=== PATIENT | male | born 1945 | race Caucasian/White ===

== ENCOUNTER 2016-04-28 07:07 | Day surgery (SDC) | payer MEDICARE ==
[~2016-04-28] VITALS: Ht 177.8 cm; Wt 99.0 kg
[2016-04-28 07:55] LABS: HEMOGLOBIN 16.4 g/dL (14.1-18.0); LYMPH # 1.7 K/mm3 (0.7-4.5); LYMPH % 29.4 % (10-50)
[2016-04-28 08:02] LABS: BUN 13 mg/dL (7-18); GFR (ESTIMATED) 83 ML/MIN (>60)
--- NOTE | 2016-04-28 09:24 | RADIOLOGY REPORT PS360 ---
CARDIAC CATHETERIZATION DATE OF CATHETERIZATION:04/28/2016 8:54 AM PROCEDURES: 1. Right heart catheterization 2. Left heart catheterization 3. Left ventriculogram 4. Selective coronary angiogram 5. Left internal mammary angiography 6. Selective engagement of the saphenous vein graft to right coronary artery INDICATION FOR TEST: 1. Abnormal high risk Myoview 2. Systolic congestive heart failure ejection fraction 28% 3. [place] heart Association class III congestive heart failure 4. History of coronary artery bypass surgery 5. Coronary artery disease Informed consent was obtained prior to the procedure. COMPLICATIONS: None ESTIMATED BLOOD LOSS: Less than 10 ml. TECHNIQUE: One percent lidocaine was used to anesthetize the right groin. The right femoral artery was accessed via the Seldinger technique. A 4-Arabic and 7 austrian sheath was placed in the right femoral artery and vein respectfully. The JR-4 and JL-4 catheter was also used to perform left heart catheterization, left ventriculography and selective coronary angiogram. At the end of the procedure the patient was transferred to the post-op holding area in stable condition for arterial sheath removal. ANGIOGRAPHIC RESULTS: 1. The left main artery normal 2. 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 It does give rise to a septal senior ui designer and one moderate size diagonal artery 3. The circumflex artery is dominant and has proximal 20% stenosis and then gives rise to 2 obtuse marginal arteries. The first obtuse marginal artery has mild 20% plaque while the large terminal obtuse marginal artery giving rise to the posterior descending artery has a proximal eccentric 30-40% stenosis 4. The right coronary artery is ostially occluded 5. The HERNÁNDEZ ventriculogram reveals severe left ventricular dilatation with ejection fraction 25% The left ventricular end-diastolic pressure 10 mmHg The left internal mammary artery is widely patent to the LAD The saphenous vein graft to the right coronary artery is ostially occluded HEMODYNAMICS: Right atrial pressure is 5 mm Hg. Pulmonary arterial pressure is 30/15 mm Hg. Pulmonary artery occlusion pressure is 12 mm Hg. SATURATIONS: RA is 83 %. PA is 81 %. IMPRESSION: 1. Chronically occluded right coronary artery with chronically occluded saphenous vein graft supplying the right coronary artery 2. Patent [place] to the LAD 3. Patent [place] circumflex artery 4. Severe left ventricular dysfunction with severe left ventricular dilatation with ejection fraction estimated at 25% by LV gram and measured at 28% by Myoview gated images 5. Mild pulmonary hypertension 6. Euvolemic cardiopulmonary state PLAN: 1. Systolic congestive heart failure standard of care 2. Patient will be scheduled for cardiac resynchronization therapy with defibrillator device because of widening QRS systolic congestive heart failure and class III [place] heart Association heart failure 3. Medical management for coronary artery disease 4. Daily aspirin 5. High intensity stent in therapy
--- NOTE | 2016-04-28 09:24 | RADIOLOGY REPORT PS360 ---
CARDIAC CATHETERIZATION DATE OF CATHETERIZATION:04/28/2016 8:54 AM PROCEDURES: 1. Right heart catheterization 2. Left heart catheterization 3. Left ventriculogram 4. Selective coronary angiogram 5. Left internal mammary angiography 6. Selective engagement of the saphenous vein graft to right coronary artery INDICATION FOR TEST: 1. Abnormal high risk Myoview 2. Systolic congestive heart failure ejection fraction 28% 3. [place] heart Association class III congestive heart failure 4. History of coronary artery bypass surgery 5. Coronary artery disease Informed consent was obtained prior to the procedure. COMPLICATIONS: None ESTIMATED BLOOD LOSS: Less than 10 ml. TECHNIQUE: One percent lidocaine was used to anesthetize the right groin. The right femoral artery was accessed via the Seldinger technique. A 4-Hebrew and 7 cook islander sheath was placed in the right femoral artery and vein respectfully. The JR-4 and JL-4 catheter was also used to perform left heart catheterization, left ventriculography and selective coronary angiogram. At the end of the procedure the patient was transferred to the post-op holding area in stable condition for arterial sheath removal. ANGIOGRAPHIC RESULTS: 1. The left main artery normal 2. 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 It does give rise to a septal manager it training and one moderate size diagonal artery 3. The circumflex artery is dominant and has proximal 20% stenosis and then gives rise to 2 obtuse marginal arteries. The first obtuse marginal artery has mild 20% plaque while the large terminal obtuse marginal artery giving rise to the posterior descending artery has a proximal eccentric 30-40% stenosis 4. The right coronary artery is ostially occluded 5. The HERNÁNDEZ ventriculogram reveals severe left ventricular dilatation with ejection fraction 25% The left ventricular end-diastolic pressure 10 mmHg The left internal mammary artery is widely patent to the LAD The saphenous vein graft to the right coronary artery is ostially occluded HEMODYNAMICS: Right atrial pressure is 5 mm Hg. Pulmonary arterial pressure is 30/15 mm Hg. Pulmonary artery occlusion pressure is 12 mm Hg. SATURATIONS: RA is 83 %. PA is 81 %. IMPRESSION: 1. Chronically occluded right coronary artery with chronically occluded saphenous vein graft supplying the right coronary artery 2. Patent [place] to the LAD 3. Patent [place] circumflex artery 4. Severe left ventricular dysfunction with severe left ventricular dilatation with ejection fraction estimated at 25% by LV gram and measured at 28% by Myoview gated images 5. Mild pulmonary hypertension 6. Euvolemic cardiopulmonary state PLAN: 1. Systolic congestive heart failure standard of care 2. Patient will be scheduled for cardiac resynchronization therapy with defibrillator device because of widening QRS systolic congestive heart failure and class III [place] heart [employer] heart failure 3. Medical management for coronary artery disease 4. Daily aspirin 5. High intensity stent in therapy
[2016-04-28 12:59] VITALS: BP 131/79
== END 2016-04-28 12:45 | disposition home or self-care (01) ==
LOC: CATHLAB 07:07
PROVIDERS: Internal Medicine
PROC: B2121ZZ Fluoroscopy of Single Coronary Artery Bypass Graft using Low Osmolar Contrast (ICD-10-PCS; 2016-04-28)
PROC: B2181ZZ Fluoroscopy of Left Internal Mammary Bypass Graft using Low Osmolar Contrast (ICD-10-PCS; 2016-04-28)
PROC: B2111ZZ Fluoroscopy of Multiple Coronary Arteries using Low Osmolar Contrast (ICD-10-PCS; 2016-04-28)
PROC: B2151ZZ Fluoroscopy of Left Heart using Low Osmolar Contrast (ICD-10-PCS; 2016-04-28)
PROC: 4A023N8 Measurement of Cardiac Sampling and Pressure, Bilateral, Percutaneous Approach (ICD-10-PCS; principal; 2016-04-28 08:30)
DX: I50.22 Chronic systolic (congestive) heart failure (principal); I25.119 Atherosclerotic heart disease of native coronary artery with unspecified angina pectoris; I25.798 Atherosclerosis of other coronary artery bypass graft(s) with other forms of angina pectoris; I25.82 Chronic total occlusion of coronary artery; Z95.1 Presence of aortocoronary bypass graft; R94.39 Abnormal result of other cardiovascular function study; I27.2 Other secondary pulmonary hypertension
CPT/HCPCS: C1725; C1769; C1894; J1644; Q9967